=== PATIENT | male | born 1940 | race Caucasian/White ===

== ENCOUNTER → 2018-11-12 | Outpatient (CLI) | payer BC | END | disposition home or self-care (01) | LOC: RAD 10:27 | PROVIDERS: ATTEND Internal Medicine Cardiovascular Disease | DX: G93.89 Other specified disorders of brain (principal); R42 Dizziness and giddiness; J34.2 Deviated nasal septum | CPT/HCPCS: 70551 ==

== ENCOUNTER 2021-06-13 06:58 | Day surgery (SDC) | payer MEDICARE, BC ==
[~2021-06-13] VITALS: Ht 170.2 cm; Wt 67.8 kg
[~2021-06-13 06:58] MED LIST: AMLO5TAB16 PO; EZET10TA48 PO; LACT1CAP26 PO; NIAC100045 PO
[2021-06-13 07:45] VITALS: BP 161/72
[2021-06-13] MEDS ORDERED: MULT-1085 PO (08:14)
[2021-06-13] MEDS ORDERED: ASPI-1265 PO (08:14)
[2021-06-13] MEDS ORDERED: FLEC100T PO (08:14)
[2021-06-13] MEDS ORDERED: LEVO25CA4 PO (08:14)
[2021-06-13] MEDS ORDERED: EZET10TA6 PO (08:14)
[2021-06-13] MEDS ORDERED: AMLO5TAB PO (08:14)
[2021-06-13] MEDS ORDERED: GARL1000 PO (08:14)
[2021-06-13] MEDS ORDERED: vancomycin/NS 1 GM ADD-VANTAGE 250 ML X 1 DOSE IV ONE (08:25)
[2021-06-13] MEDS ORDERED: ceFAZolin 2gm in dextrose, iso 50 ML IV ONE (08:25)
[2021-06-13 08:34] LABS: BASOPHILS # (AUTO) 0.1 X10'3 (0-0.2); EOSINOPHILS # (AUTO) 0.5 X10'3 (0-0.9); EOSINOPHILS % (AUTO) 5.4 % (0-6); HEMATOCRIT 38.6 % (42.0-52.0); HEMOGLOBIN 13.2 g/dl (14.0-17.9); LYMPHOCYTES # (AUTO) 1.3 X10'3 (1.1-4.8); LYMPHOCYTES % (AUTO) 15.1 % (21-51); MEAN CORPUSCULAR HEMOGLOBIN 31.6 PG (27.0-31.0); MEAN CORPUSCULAR HGB CONC 34.2 g/dL (33.0-36.5); MEAN CORPUSCULAR VOLUME 92.3 FL (78-98); MEAN PLATELET VOLUME 6.4 FL (7.4-10.4); MONOCYTES # (AUTO) 0.6 X10'3 (0-0.9); MONOCYTES % (AUTO) 7.3 % (2-12); NEUTROPHILS # (AUTO) 6.1 X10'3 (1.8-7.7); NEUTROPHILS % (AUTO) 71.2 % (42-75); PLATELET COUNT 351 X10'3 (140-440); RED BLOOD COUNT 4.19 X10'6 (4.70-6.10); RED CELL DISTRIBUTION WIDTH 15.4 % (11.5-14.5); WHITE BLOOD COUNT 8.6 X10'3 (4.5-11.0)
[2021-06-13] MEDS ORDERED: fentaNYL/PF 50MCG/1 ML 2ML syringe ONE (08:35)
[2021-06-13] MEDS ORDERED: midazolam 1 mg/ML 2ml injection ONE ×2 (08:35→09:54)
[2021-06-13] MEDS ORDERED: LIDOcaine 1% w/EPI 1:100,000 30ml vial (MDV) ONE (08:36)
[2021-06-13] MEDS ORDERED: vancomycin 1,000mg inj ONE (08:36)
[2021-06-13 08:48] LABS: ALBUMIN 3.3 G/DL (3.4-5.0); ANION GAP 12 (8-16); BLOOD UREA NITROGEN 39 MG/DL (7-18); BUN/CREATININE RATIO 16.7 (5.4-32.0); CHLORIDE 106 MMOL/L (99-107); CREATININE 2.34 MG/DL (0.60-1.10); GLUCOSE 89 MG/DL (70-104); MAGNESIUM 2.3 MG/DL (1.5-2.4); POTASSIUM 4.5 MMOL/L (3.5-5.1); SODIUM 140 MMOL/L (135-145); TOTAL CARBON DIOXIDE 22.3 MMOL/L (24-32); eGFR 27 ML/MIN
[2021-06-13] MEDS ORDERED: iohexol 350 MG/ML 50ML vial IV ONE ×2 (08:56→09:58)
[2021-06-13 10:41] VITALS: BP 144/61
[2021-06-13] MEDS ORDERED: normal saline 1000ml 1,000 ML IV SCH (11:00)
[2021-06-13 11:12] VITALS: BP 153/84
[2021-06-13 11:26] VITALS: BP 117/58
[2021-06-13 11:42] VITALS: BP 115/53
[2021-06-13 12:08] VITALS: BP 121/66
== END 2021-06-13 12:30 | disposition home or self-care (01) ==
LOC: SSTAY O 06:58
PROVIDERS: ATTEND Internal Medicine Cardiovascular Disease
DX: Z45.010 Encounter for checking and testing of cardiac pacemaker pulse generator [battery] (principal); I44.2 Atrioventricular block, complete; I25.10 Atherosclerotic heart disease of native coronary artery without angina pectoris; I10 Essential (primary) hypertension; I47.1 Supraventricular tachycardia; E78.49 Other hyperlipidemia; Z95.5 Presence of coronary angioplasty implant and graft; Z79.899 Other long term (current) drug therapy; Z98.890 Other specified postprocedural states; Z72.89 Other problems related to lifestyle; Z88.8 Allergy status to other drugs, medicaments and biological substances; Z82.49 Family history of ischemic heart disease and other diseases of the circulatory system
CPT/HCPCS: 33228; 36415; 80048; 83735; 85025; 85610; 93005; 99152; 99153; C1769; C1785; C1894; J2250; J3010; J3370; J3490; Q9967; A4620; A6258